=== PATIENT | female | born 1940 | race Caucasian/White ===

== ENCOUNTER 2021-05-17 09:00 | Observation (INO) | payer OTHER ==
[~2021-05-17] VITALS: Ht 165.1 cm; Wt 95.7 kg
[2021-05-17 11:20] VITALS: BP 151/78
[2021-05-17 11:33] LABS: BASOPHILS % (AUTO) 0.8 % (0.0-5.0); EOSINOPHILS % (AUTO) 4.2 % (0.0-8.0); HEMATOCRIT 34.7 % (36-48); LYMPHOCYTES % (AUTO) 38.2 % (21.0-51.0); MEAN CORPUSCULAR HEMOGLOBIN 31.2 pg (27.0-33.0); MEAN CORPUSCULAR HGB CONC 33.7 g/dL (32.0-36.0); MEAN CORPUSCULAR VOLUME 92.5 fL (79-99); MONOCYTES % (AUTO) 13.1 % (3.0-13.0); NEUTROPHILS % (AUTO) 43.5 % (40.0-77.0); PLATELET COUNT (AUTO) 208 K/uL (130-400); RED BLOOD CELL COUNT(AUTO) 3.75 MIL/uL (4.00-5.50); RED CELL DISTRIBUTION WIDTH 12.6 % (11.0-15.5)
[2021-05-17 11:44] LABS: POTASSIUM 4.1 mmol/L (3.5-5.1)
[2021-05-18] MEDS ORDERED: ASPI-1197 PO (09:57)
[2021-05-18] MEDS ORDERED: ACET-2027 PO (09:57)
[2021-05-18] MEDS ORDERED: CHLO25TA3 PO (09:57)
[2021-05-18] MEDS ORDERED: GABA-529 PO (09:57)
[2021-05-18] MEDS ORDERED: METO-408 PO (09:57)
[2021-05-18] MEDS ORDERED: CETI10TA57 PO (09:57)
[2021-05-18] MEDS ORDERED: OLME20TA22 PO (09:57)
[2021-05-18] MEDS ORDERED: PARO-66 PO (09:57)
[2021-05-18] MEDS ORDERED: GINK120C PO (09:57)
[2021-05-18] MEDS ORDERED: ZINC220T4 PO (09:57)
[2021-05-18] MEDS ORDERED: OMEP20CA12 PO (09:57)
[2021-05-18] MEDS ORDERED: MULT-1258 PO (09:57)
[2021-05-18] MEDS ORDERED: UBID30CA11 PO (09:57)
[2021-05-19] VITALS (24 sets, daily range): BP systolic 107–139; BP diastolic 47–88
[2021-05-19] MEDS ORDERED: LACTATED RINGERS 1000ML 1,000 ML IV ONE (06:27)
[2021-05-19] MEDS ORDERED: BUPIVACAINE/EPI/PF 0.5% 30ML VIAL IJ ONE (06:56)
[2021-05-19] MEDS ORDERED: CEFAZOLIN SODIUM 1 GM VIAL ONE (06:56)
[2021-05-19] MEDS ORDERED: THROMBIN-JMI 20000 UNIT KIT TP ONE (06:57)
[2021-05-19] MEDS ORDERED: LIDOCAINE PF 100MG/5ML (2%) SYRINGE 5ML ONE (06:59)
[2021-05-19] MEDS ORDERED: SUCCINYLCHOLINE CHLORIDE 20 MG/ML 10 ML VIAL ONE (06:59)
[2021-05-19] MEDS ORDERED: DEXAMETHASONE SOD PHOSPHATE 10MG/ML 1ML VIAL ONE (07:00)
[2021-05-19] MEDS ORDERED: GLYCOPYRROLATE 1 MG/5 ML SYRINGE ONE (07:00)
[2021-05-19] MEDS ORDERED: PROPOFOL 10 MG/ML 20ML VIAL IV ONE ×2 (07:00→07:05)
[2021-05-19] MEDS ORDERED: NEOSTIGMINE 5MG/5ML SYR IV ONE (07:01)
[2021-05-19] MEDS ORDERED: ONDANSETRON 4MG INJ ONE ×2 (07:01→08:31)
[2021-05-19] MEDS ORDERED: FENTANYL CITRATE PF 50 MCG/1 ML 2ML VIAL ONE ×2 (07:01→10:58)
[2021-05-19] MEDS ORDERED: ROCURONIUM 10MG/1ML SYR 10 MG/ML ML ONE ×2 (07:01→08:23)
[2021-05-19] MEDS ORDERED: MIDAZOLAM HCL 1 MG/ML 2ML VIAL ONE (07:01)
[2021-05-19] MEDS: CEFAZOLIN SODIUM 1 GM VIAL ONE ×2 (07:03→07:30)
[2021-05-19] MEDS ORDERED: PHENYLEPHRINE HCL 10 MG/ML 1ML VIAL IV ONE (07:07)
[2021-05-19] MEDS ORDERED: EPHEDRINE SULFATE 50 MG/ML AMPULE ONE (07:11)
[2021-05-19] MEDS ORDERED: MANNITOL 20% 500ML BAG 500 ML IV ONE (07:37)
[2021-05-19] MEDS ORDERED: ARTIFICIAL TEARS 3.5 GM OINTMENT ONE (07:44)
[2021-05-19] MEDS ORDERED: PROMETHAZINE HCL 25 MG/ML 1ML AMPULE IM PRN (12:00)
[2021-05-19] MEDS ORDERED: 0.9%NACL 10ML VIAL IVP PRN (12:00)
[2021-05-19] MEDS ORDERED: HYDROCODONE/ACETAMINOPHEN 5/325 MG TAB PO PRN (12:00)
[2021-05-19] MEDS: DEXAMETHASONE SOD PHOSPHATE 4 MG/ML 1ML VIAL IVP SCH ×3 (13:25→23:53)
[2021-05-19] MEDS: LACTATED RINGERS 1000ML 1,000 ML IV SCH (13:25)
[2021-05-19] MEDS: MORPHINE 2 MG SYG IVP PRN ×2 (13:25→17:41)
[2021-05-19] MEDS ORDERED: CEFAZOLIN SODIUM 1 GM VIAL IVP SCH (15:30)
[2021-05-19] MEDS: ACETAMINOPHEN 650MG ER TAB PO SCH (20:49)
[2021-05-19] MEDS ORDERED: CETIRIZINE HCL 5 MG TABLET PO SCH (21:00)
[2021-05-19] MEDS ORDERED: GABAPENTIN 100 MG CAPSULE PO SCH (21:00)
[2021-05-19] MEDS ORDERED: ACETAMINOPHEN 325 MG TAB ONE (23:47)
[2021-05-20] MEDS ORDERED: ACETAMINOPHEN 325 MG TAB PO PRN
[2021-05-20 00:11] VITALS: BP 104/59
[2021-05-20] MEDS: MORPHINE 2 MG SYG IVP PRN (00:54)
[2021-05-20] MEDS: LACTATED RINGERS 1000ML 1,000 ML IV SCH (01:20)
[2021-05-20] MEDS: DEXAMETHASONE SOD PHOSPHATE 4 MG/ML 1ML VIAL IVP SCH (06:07)
[2021-05-20 06:14] VITALS: BP 119/74
[2021-05-20 08:20] VITALS: BP 128/58
[2021-05-20] MEDS: PANTOPRAZOLE 40 MG TAB DR PO SCH ×2 (09:00→10:06)
[2021-05-20] MEDS ORDERED: Olmesartan Medoxomil 20 MG PO SCH (09:00)
[2021-05-20] MEDS ORDERED: GINKGO BILOBA EXTRACT 120 MG PO SCH (09:00)
[2021-05-20] MEDS: ACETAMINOPHEN 650MG ER TAB PO SCH (09:00)
[2021-05-20] MEDS: METOPROLOL SUCCINATE 50 MG TAB.SR.24H PO SCH ×2 (09:00→10:06)
[2021-05-20] MEDS ORDERED: Chlorthalidone 25 MG PO SCH (09:00)
[2021-05-20] MEDS: ASPIRIN 81MG CHEW TAB PO SCH ×2 (09:00→10:06)
[2021-05-20] MEDS: PAROXETINE HCL 20 MG TABLET PO SCH ×2 (09:00→10:07)
[2021-05-20] MEDS: MULTIVITAMIN TABLET PO SCH ×2 (09:00→10:06)
[2021-05-20 11:00] VITALS: BP 128/58
== END 2021-05-20 14:30 | disposition home or self-care (01) ==
LOC: DAHIP 05-19 05:56 → EDSTATUS 05-19 09:00 → 3DH 05-19 12:46
PROVIDERS: ADMIT Neurological Surgery; ATTEND Neurological Surgery
DX: M48.02 Spinal stenosis, cervical region (principal); Z20.822 Contact with and (suspected) exposure to COVID-19; M54.12 Radiculopathy, cervical region; G99.2 Myelopathy in diseases classified elsewhere; M25.78 Osteophyte, vertebrae; Z79.82 Long term (current) use of aspirin; Z85.42 Personal history of malignant neoplasm of other parts of uterus; Z87.891 Personal history of nicotine dependence; Z90.710 Acquired absence of both cervix and uterus
CPT/HCPCS: 20931; 22551; 22552 ×2; 36415; 72020; 80051; 85025; 87635; 96361; 96374; 96375; 96376 ×2; A4215; A4221; A4222; A4223; A4344; A4600; A4649 ×2; A4930; C1776; C9803; G0378 ×26; J0330; J0690 ×3; J1100 ×5; J2001; J2250; J2370; J2405 ×2; J2704 ×2; J2710; J3010 ×2; J3490 ×4; J7030; J7120 ×2

== ENCOUNTER → 2024-07-04 | Outpatient (CLI) | payer OTHER ==
[~2024-07-04] MED LIST: ACET-2027 PO; ASPI-1197 PO; BACL10TA PO; CALCIUM PO; CETI10TA57 PO; CHLO25TA3 PO; ESOM40CA66 PO; FLUTICASONE IH; FLUTICASONE NASAL; FURO20TA6 PO; GABA300C PO; METHYL B12 PO; METO-409 PO; MONT-39 PO; MULT-1258 PO; OLME40TA18 PO; PARO-149 PO; POTASSIUM PO; SALMET IH; ZINC220T4 PO
[2024-07-04 12:19] LABS: CREATININE 0.9 mg/dL (0.5-1.0); POTASSIUM 4.1 mmol/L (3.5-5.1)
== END | disposition home or self-care (01) ==
LOC: LAB 11:16
PROVIDERS: ATTEND Internal Medicine Cardiovascular Disease
DX: R06.09 Other forms of dyspnea (principal)
CPT/HCPCS: 36415; 80048